=== PATIENT | female | born 1960 | race Caucasian/White ===

== ENCOUNTER 2017-08-19 05:42 | Emergency (ER) | payer BC, OTHER ==
[2017-08-19] MEDS ORDERED: Ondansetron 4 MG/2 ML SDV IVPUSH ONE (06:01)
[2017-08-19] MEDS ORDERED: Ketorolac 30 MG/ML SDV IVPUSH ONE (06:01)
[2017-08-19] MEDS ORDERED: Sodium Chloride 0.9% 1,000 ML IV ONE (06:01)
--- NOTE | 2017-08-19 06:11 | EDM.PDOC ---
<Freddy Villaseñor - Last Filed: 08/19/17 07:02> ED HPI GENERAL MEDICAL PROBLEM - General Chief Complaint: Abdominal Pain Stated Complaint: STOMACH PAINS Time Seen by Provider: 08/19/17 06:11 Source of Information: Reports: Patient - History of Present Illness INITIAL COMMENTS - FREE TEXT/NARRATIVE: HISTORY AND PHYSICAL: History of present illness: [Patient presents with epigastric pain radiating to her back she rates 8 out of 10 and has been present since 7 PM last night, and began after eating taco [employer] No fever vomiting chills sweats at current she has had one episode of vomiting and some mild nausea no chest pain shortness breath headache dizziness or palpitation bowel or urine symptoms last bowel movement yesterday] Previous appendectomy Review of systems: As per history of present illness and below otherwise all systems reviewed and negative. Past medical history: As per history of present illness and as reviewed below otherwise noncontributory. Surgical history: As per history of present illness and as reviewed below otherwise noncontributory. Social history: No reported history of drug or alcohol abuse. Family history: As per history of present illness and as reviewed below otherwise noncontributory. Physical exam: HEENT: Atraumatic, normocephalic, pupils reactive, negative for conjunctival pallor or scleral icterus, mucous membranes moist, throat clear, neck supple, nontender, trachea midline. Lungs: Clear to auscultation, breath sounds equal bilaterally, chest nontender. Heart: S1S2, regular, negative for clicks, rubs, or JVD. Abdomen: Soft, nondistended but protuberant, nonfocal pain on deep palpation no guarding or rebound. Negative for masses or hepatosplenomegaly. Negative for costovertebral tenderness. Pelvis: Stable nontender. Genitourinary: Deferred. Rectal: Deferred. Extremities: Atraumatic, negative for cords or calf pain. Neurovascular unremarkable. Neuro: Awake, alert, oriented. Cranial nerves II through XII unremarkable. Cerebellum unremarkable. Motor and sensory unremarkable throughout. Exam nonfocal. Diagnostics: [CBC CMP troponin lipase ] Therapeutics: [ 1 L normal saline bolus Zofran 8 mg IV Toradol 30 mg IV ] Impression: [ abdominal pain ] Patient signed out to Dr. Rea at 7 AM follow imaging redirect and disposition Definitive disposition and diagnosis as appropriate pending reevaluation and review of above. Treatments LACE FINISHER: Reports: NSAIDS Abdomen Pain Score (Numeric/FACES): 8 - Related Data Allergies Allergy/AdvReac Type Severity Reaction Status Date / Time morphine Allergy Nausea Verified 08/19/17 05:52 Home Meds: Home Meds . 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: Musculoskeletal History: Reports: None Neurological History: Reports: None Psychiatric History: Reports: None Endocrine/Metabolic History: Reports: None Hematologic History: Reports: None Immunologic History: Reports: None Oncologic (Cancer) History: Reports: None Dermatologic History: Reports: None - Infectious Disease History Infectious Disease History: Reports: Chicken Pox - Past Surgical History Head Surgeries/Procedures: Reports: None GI Surgical History: Reports: Appendectomy Female Surgical History: Reports: Hysterectomy Social & Family History - Family History Family Medical History: Noncontributory - Tobacco Use Smoking Status *Q: Never Smoker - Caffeine Use Caffeine Use: Reports: Soda - Recreational Drug Use Recreational Drug Use: No Course - Vital Signs Last Recorded V/S: Last Vital Signs Temp 36.1 C 08/19/17 05:52 Pulse 105 H 08/19/17 05:52 Resp 18 08/19/17 05:52 BP 151/85 H 08/19/17 05:52 Pulse Ox 98 08/19/17 05:52 - Orders/Labs/Meds Orders: Active Orders 24 hr Category Date Time Status Abdomen Pelvis w Cont [CT] Stat Exams 08/19/17 06:34 Taken UA W/MICROSCOPIC [URIN] Stat Lab 08/19/17 06:50 Ordered Labs: Laboratory Tests 08/19/17 08/19/17 08/19/17 Range/Units 06:00 06:00 06:50 WBC 17.15 H (4.0-11.0) K/uL RBC 4.76 (4.30-5.90) M/uL Hgb 14.1 (12.0-16.0) g/dL Hct 43.2 (36.0-46.0) % MCV 90.8 (80.0-98.0) fL MCH 29.6 (27.0-32.0) pg MCHC 32.6 (31.0-37.0) g/dL RDW Std Deviation 43.6 (28.0-62.0) fl RDW Coeff of Jacob 13 (11.0-15.0) % Plt Count 298 (150-400) K/uL MPV 10.40 (7.40-12.00) fL Neut % (Auto) 86.1 H (48.0-80.0) % Lymph % (Auto) 9.5 L (16.0-40.0) % Mower % (Auto) 4.3 (0.0-15.0) % Eos % (Auto) 0.0 (0.0-7.0) % Baso % (Auto) 0.1 (0.0-1.5) % Neut # (Auto) 14.8 H (1.4-5.7) K/uL Lymph # (Auto) 1.6 (0.6-2.4) K/uL Mower # (Auto) 0.7 (0.0-0.8) K/uL Eos # (Auto) 0.0 (0.0-0.7) K/uL Baso # (Auto) 0.0 (0.0-0.1) K/uL Nucleated RBC % 0.0 /100WBC Nucleated RBCs # 0 K/uL Sodium 139 (136-145) mmol/L Potassium 4.0 (3.5-5.1) mmol/L Chloride 101 (98-107) mmol/L Carbon Dioxide 26.4 (21.0-32.0) mmol/L BUN 14 (7.0-18.0) mg/dL Creatinine 0.8 (0.6-1.0) mg/dL Est Cr Clr Drug Dosing 69.81 mL/min Estimated GFR (MDRD) > 60.0 ml/min Glucose 153 H (74-106) mg/dL Calcium 9.5 (8.5-10.1) mg/dL Total Bilirubin 0.2 (0.2-1.0) mg/dL AST 16 (15-37) IU/L ALT 23 (14-63) IU/L Alkaline Phosphatase 147 H (46-116) U/L Troponin I < 0.050 (0.000-0.056) ng/mL Total Protein 7.8 (6.4-8.2) g/dL Albumin 3.9 (3.4-5.0) g/dL Globulin 3.9 H (2.0-3.5) g/dL Albumin/Globulin Ratio 1.0 L (1.3-2.8) Lipase 90 (73-393) U/L Urine Color YELLOW Urine Appearance HAZY Urine pH 8.5 H (5.0-8.0) Ur Specific [place] 1.020 (1.001-1.035) Urine Protein TRACE (NEGATIVE) mg/dL Urine Glucose (UA) NEGATIVE (NEGATIVE) mg/dL Urine Ketones NEGATIVE (NEGATIVE) mg/dL Urine Occult Blood NEGATIVE (NEGATIVE) Urine Nitrite NEGATIVE (NEGATIVE) Urine Bilirubin NEGATIVE (NEGATIVE) Urine Urobilinogen 2.0 H (<2.0) EU/dL Ur Leukocyte Esterase NEGATIVE (NEGATIVE) Urine RBC 0-2 (0-2/HPF) Urine WBC 0-2 (0-5/HPF) Ur Epithelial Cells MODERATE (NONE-FEW) Urine Bacteria FEW (NEGATIVE) Meds: Medications Discontinued Medications Generic Name Dose Route Start Last Admin Trade Name Freq PRN Reason Stop Dose Admin Sodium Chloride 1,000 mls @ 999 mls/hr 08/19/17 06:01 08/19/17 06:09 Normal Saline IV 08/19/17 07:01 999 mls/hr STAT ONE Administration Iopamidol 100 ml 08/19/17 07:07 08/19/17 07:07 Isovue-370 (76%) IVPUSH 08/19/17 07:08 100 ml ONETIME STA Administration Ketorolac Tromethamine 30 mg 08/19/17 06:01 08/19/17 06:10 Toradol IVPUSH 08/19/17 06:02 30 mg ONETIME ONE Administration Ondansetron HCl 8 mg 08/19/17 06:01 08/19/17 06:09 Zofran IVPUSH 08/19/17 06:02 8 mg ONETIME ONE Administration Departure - Departure Disposition: Home, Self-Care 01 Clinical Impression: Abdominal pain Qualifiers: Abdominal location: upper abdomen, unspecified Qualified Code(s): R10.10 - Upper abdominal pain, unspecified Leukocytosis Qualifiers: Leukocytosis type: unspecified Qualified Code(s): D72.829 - Elevated white blood cell count, unspecified - Discharge Information Referrals: PCP,None [Primary Care Provider] - Forms: ED Department Discharge Additional Instructions: The following information is given to patients seen in the emergency department who are being discharged to home. This information is to outline your options for follow-up care. We provide all patients seen in our emergency department with a follow-up referral. The need for follow-up, as well as the timing and circumstances, are variable depending upon the specifics of your emergency department visit. If you don't have a primary care physician on staff, we will provide you with a referral. We always advise you to contact your personal physician following an emergency department visit to inform them of the circumstance of the visit and for follow-up with them and/or the need for any referrals to a consulting specialist. The emergency department will also refer you to a specialist when appropriate. This referral assures that you have the opportunity for followup care with a specialist. All of these measure are taken in an effort to provide you with optimal care, which includes your followup. Under all circumstances we always encourage you to contact your private physician who remains a resource for coordinating your care. When calling for followup care, please make the office aware that this follow-up is from your recent emergency room visit. If for any reason you are refused follow-up, please contact the [facility] emergency department at and ask to speak to the emergency department charge nurse. [facility] Specialty Care-General Surgery Professional [address] [address] Please push hydration and avoid spicy foods and eating a low-fat diet. Please call and follow-up with Dr. Santoyo and her clinic using resources given to above. Please return to ER as needed and as discussed and use the pain medications you have been given as needed. <Estela Stovall - Last Filed: 08/19/17 08:34> ED HPI GENERAL MEDICAL PROBLEM - History of Present Illness INITIAL COMMENTS - FREE TEXT/NARRATIVE: This is Dr. Stovall dictating an addendum note as having assumed care of this case at 7 AM. Agree with history and physical as above and on my evaluation the patient says that the pain is pretty much gone but when she was having it it was diffuse right and left as well as mid abdomen in the upper location not localizing right or left. She has a bowel movement every other day and it is not changed in character color. She did eat tacos last evening but she does eat those in the past and has never had issues. Currently labs have been reviewed which revealed a WBC count of 17,000 and an alkaline phosphatase of 147 but the remainder the labs are normal. She is pain-free currently and we await the CT scan results. 0800: All testing results were discussed with the patient and family at bedside as well as with Dr. Santoyo our on-call surgeon. As the patient is currently pain -free and has no significant findings she feels the patient can go home with expectant management and close observation with strict reasons to return to the ED. She will follow the patient up in her clinic. Patient is comfortable with this care plan. I will give her a few tramadol to use for discomfort but strongly advised her on reasons to return. Impression: Abdominal pain etiology unclear, leukocytosis ED ROS GENERAL - Review of Systems Review Of Systems: ROS reveals no pertinent complaints other than HPI. ED EXAM, GENERAL - Physical Exam Exam: See Below (see dictation) Departure - Departure Time of Disposition: 08:33 Condition: Good
[2017-08-19 06:29] LABS: CHLORIDE,CL 101 mmol/L (98-107); SODIUM,NA 139 mmol/L (136-145)
[2017-08-19] MEDS ORDERED: Iopamidol 755 Mg/ML 100 ML Bottle IVPUSH STA (07:07)
--- NOTE | 2017-08-20 14:22 | CT ---
EXAM DATE: 08/19/17 PATIENT'S AGE: 57 Patient: JUAN MUHAMMAD Facility: [place], [place] Site . Site : 1960 Study: CT Abdomen/Pelvis WITH [id number]/22/2018 7:12:30 AM Ordering Physician: Lee Ann Hayes Final Report: HISTORY: Generalized abdominal pain. COMPARISON: None. TECHNIQUE: Axial images were obtained through the abdomen and pelvis following intravenous contrast. FINDINGS: Mild ground-glass opacities in the and lower lungs likely related to atelectasis. Tiny hypodensity in the right lobe of the liver should be a cyst. The spleen pancreas adrenal glands and kidneys are within normal. The bowel is normal in caliber. No evidence for bowel obstruction. Colonic diverticula. No acute diverticulitis. No lymphadenopathy or ascites. Degenerative changes in the lower lumbar spine. IMPRESSION: No acute abnormality. Please note that all CT scans at this facility use dose modulation, iterative reconstruction, and/or weight-based dosing when appropriate to reduce radiation dose to as low as reasonably achievable. Dictated by Leydi Zaragoza MD @ Aug 19 2017 7:38AM (Electronic Signature) Report Signed by Proxy. [facility]
== END 2017-08-19 08:50 | disposition home or self-care (01) ==
LOC: MW.ED 05:42
DX: R10.13 Epigastric pain (principal); R10.10 Upper abdominal pain, unspecified; D72.829 Elevated white blood cell count, unspecified; Z88.5 Allergy status to narcotic agent; Z90.49 Acquired absence of other specified parts of digestive tract
CPT/HCPCS: 36415; 74177; 80053; 81001; 83690; 84484; 85025; 96361; 96374; 96375; 99284; J1885; J2405; J7040; Q9967

== ENCOUNTER → 2017-09-13 | Day surgery (SDC) | payer BC ==
[~2017-09-13] MED LIST: Bupivacaine 0.5% 30 ML SDV ONE; Glycopyrrolate 0.2 MG/ML SDV ONE; HYDROmorphone 2 MG/ML SDV ONE; Lactated Ringers 1,000 ML IV SCH; Lidocaine 2% 5 ML SDV ONE; Midazolam 1 MG/ML 2 ML SDV ONE; Neostigmine Methylsulfate 1 MG/ML 5 ML Syringe ONE; Propofol 200 MG/20 ML SDV ONE; Sodium Chloride 0.9% 10 ML Syringe FLUSH PRN; Sodium Chloride 0.9% 2.5 ML Syringe FLUSH PRN; Sugammadex Sodium 200 MG/2 ML VIAL ONE; ceFAZolin 2 GM in Premix Bag 1 BAG IV ONE; ePHEDrine 50 MG/ML SDV ONE; fentaNYL 100 MCG/2 ML SDV ONE
--- NOTE | 2017-09-13 10:39 | PCM.PREANE ---
Preanesthetic Assessment - Anesthesia/Transfusion/Family Hx Anesthesia History: Prior Anesthesia Without Reaction Family History of Anesthesia Reaction: No Transfusion History: No Prior Transfusion(s) - Review of Systems General: No Symptoms Pulmonary: No Symptoms Cardiovascular: No Symptoms Gastrointestinal: No Symptoms Neurological: No Symptoms Other: Reports: None - Physical Assessment NPO Status Date: 09/12/17 Height: 1.65 m Weight: 119.295 kg ASA Class: 2 Mental Status: Alert & Oriented x3 Airway Class: Mallampati = 1 Dentition: Reports: Normal Dentition ROM/Head Extension: Full Lungs: Clear to Auscultation, Normal Respiratory Effort Cardiovascular: Regular Rate, Regular Rhythm - Allergies Allergies/Adverse Reactions: Allergies Allergy/AdvReac Type Severity Reaction Status Date / Time morphine Allergy Nausea Verified 09/10/17 13:51 - Acknowledgements Anesthesia Type Planned: General Anesthesia (PMH: MO, htn, gerd) Pt an Appropriate Candidate for the Planned Anesthesia: Yes Alternatives and Risks of Anesthesia Discussed w Pt/Guardian: Yes Pt/Guardian Understands and Agrees with Anesthesia Plan: Yes PreAnesthesia Questionnaire HEENT History: Reports: None Cardiovascular History: Reports: Hypertension Respiratory History: Reports: None Gastrointestinal History: Reports: GERD Genitourinary History: Reports: None 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: Musculoskeletal History: Reports: None Neurological History: Reports: None Psychiatric History: Reports: None Endocrine/Metabolic History: Reports: Obesity/BMI 30+ Hematologic History: Reports: None Immunologic History: Reports: None Oncologic (Cancer) History: Reports: None Dermatologic History: Reports: None - Infectious Disease History Infectious Disease History: Reports: Chicken Pox - Past Surgical History HEENT Surgical History: Reports: Adenoidectomy, Naso-Sinus Surgery, Tonsillectomy GI Surgical History: Reports: Appendectomy Female Surgical History: Reports: Hysterectomy, Salpingo-Oophorectomy - SUBSTANCE USE Smoking Status *Q: Never Smoker Recreational Drug Use History: No - HOME MEDS Home Medications: Home Meds Lisinopril 10 mg PO DAILY 09/10/17 [History] Omeprazole 40 mg PO DAILY 09/10/17 [History] - CURRENT (IN HOUSE) MEDS Current Meds: Current Medications Lactated Ringer's (Ringers, Lactated) 1,000 mls @ 125 mls/hr IV ASDIRECTED [facility] Last Admin: 09/13/17 10:36 Dose: 125 mls/hr Sodium Chloride (Saline Flush) 10 ml FLUSH ASDIRECTED PRN PRN Reason: Keep Vein Open Sodium Chloride (Saline Flush) 2.5 ml FLUSH ASDIRECTED PRN PRN Reason: Keep Vein Open Discontinued Medications Bupivacaine HCl (Marcaine 0.5%) Confirm Administered Dose 30 ml .ROUTE .STK-MED ONE Stop: 09/13/17 07:25 Fentanyl (Sublimaze) Confirm Administered Dose 500 mcg .ROUTE .STK-MED ONE Stop: 09/13/17 10:20 Glycopyrrolate (Robinul) Confirm Administered Dose 0.6 mg .ROUTE .STK-MED ONE Stop: 09/13/17 08:57 Cefazolin Sodium/Dextrose 2 gm (/ Premix) 50 mls @ 100 mls/hr IV ONETIME ONE Stop: 09/12/17 13:31 Lidocaine (Xylocaine-Mpf 2%) Confirm Administered Dose 10 ml .ROUTE .STK-MED ONE Stop: 09/13/17 10:20 Midazolam HCl (Versed 1 Mg/Ml) Confirm Administered Dose 2 mg .ROUTE .STK-MED ONE Stop: 09/13/17 10:21 Neostigmine Methylsulfate (Neostigmine) Confirm Administered Dose 5 mg .ROUTE .STK-MED ONE Stop: 09/13/17 08:57 Propofol (Diprivan 20 Ml) Confirm Administered Dose 400 mg .ROUTE .STK-MED ONE Stop: 09/13/17 10:20
[2017-09-13 12:25] LABS: CHLORIDE,CL 105 mmol/L (98-107); SODIUM,NA 138 mmol/L (136-145)
--- NOTE | 2017-09-13 16:32 | PCM.OPNOTE ---
- General Post-Op/Procedure Note Date of Surgery/Procedure: 09/13/17 Operative Procedure(s): Laparoscopic coverted to open cholecystectomy Findings: Severely inflamed and hemorrhagic gallbladder containing large impacted stones in the infundibulum. Large amount of inflammation around cystic duct and CBD. Pre Op Diagnosis: Symptomatic cholelithiasis Post-Op Diagnosis: Acute, hemorrhagic cholecystits Anesthesia Technique: General ET Tube Primary Surgeon: Jayshree Santoyo Secondary Surgeon: Sinan Moreno Pathology: gallbladder Output, Urine Amount: 200 EBL in mLs: 300 Surgical Drain/Tube Type: Shaheed Drain Complications: Gallbladder tore from the cystic duct Condition: Good Free Text/Narrative:: Intake & Output 09/13/17 09/13/17 09/13/17 06:59 14:59 22:59 Output Total 200 Balance -200
--- NOTE | 2017-09-13 16:57 | PCM.POSTAN ---
POST ANESTHESIA ASSESSMENT - MENTAL STATUS Mental Status: Alert, Oriented - RESPIRATORY Respiratory Status: Respiratory Rate WNL, Airway Patent, O2 Saturation Stable - CARDIOVASCULAR CV Status: Pulse Rate WNL, Blood Pressure Stable - GASTROINTESTINAL GI Status: No Symptoms - PAIN Pain Score: 3 - POST OP HYDRATION Hydration Status: Adequate & Stable - OBSERVATIONS Free Text/Narrative:: Pt is stable and doing well in PACU, Dr Santoyo is having he patient transferred to [facility] for evaluation of suspected common bile duct injury. Pt will be transferred directly from PACU to the care of the flight team.
--- NOTE | 2017-09-13 16:58 | PCM48HPAN ---
Post Anesthesia Note - EVALUATION WITHIN 48HRS OF ANESTHETIC Vital Signs in Normal Range: Yes Patient Participated in Evaluation: Yes Respiratory Function Stable: Yes Airway Patent: Yes Cardiovascular Function Stable: Yes Hydration Status Stable: Yes Pain Control Satisfactory: Yes Nausea and Vomiting Control Satisfactory: Yes Mental Status Recovered: Yes Resp Rate: 16
--- NOTE | 2017-09-14 08:46 | OR ---
SURGEON: ERASTO COWAN MD DATE OF PROCEDURE: 09/13/2017 PREOPERATIVE DIAGNOSIS: Symptomatic cholelithiasis. POSTOPERATIVE DIAGNOSIS: Severe cholecystitis. BRAND MANAGER: Sinan Moreno M.D. FLUIDS: 2500ml crystalloid ESTIMATED BLOOD LOSS: 300 mL. URINE OUTPUT: 200 mL. FINDINGS: Severely inflamed and enlarged gallbladder containing multiple large gallstones. Several of these were impacted at the cystic duct. Patches of necrosis in gallbladder lumen. COMPLICATIONS: Gallbladder tore from cystic duct or common bile duct. INDICATIONS: The patient is a 57-year-old female, who presented on August 19 to the emergency room with right upper quadrant pain. Her white count at that time was 17,000 and alkaline phosphatase was slightly elevated. A CT of the abdomen and pelvis showed cholelithiasis. The patient was sent home. She was then sent to my clinic. I obtained a right upper quadrant ultrasound that showed a mildly thickened gallbladder wall and cholelithiasis with a positive dunn's sign. Her CBD measured 2mm. The patient established a PCP and had blood work performed before surgery. She was found to have an elevated AST, ALT, alkaline phosphatase but a normal bilirubin. On recheck today, her ALT and AST were normal. Her alkaline phosphatase was mildly elevated (but improved) and she was feeling well. The decision was made to remove the gallbladder. We discussed the laparoscopic and open approaches. I explained that should I be unable to complete it safely laparoscopically, we would convert to open. I explained the expected postoperative course as well as the risks including bleeding, infection, or damage to surrounding structures. The patient verbalized understanding and wished to proceed. PROCEDURE IN DETAIL: The patient was brought into the OR and placed on the OR table in supine position. A time-out was completed verifying the patient's name, age, date of , allergies, and procedure to be performed. General endotracheal anesthesia was induced. The left arm was tucked at the patient's side and a Ferro catheter was placed. The abdomen was prepped and draped in usual standard fashion. The supraumbilical midline was anesthetized with 0.5% Marcaine plain. A 3 cm incision was made using an 11 blade. Retractors were used to bluntly dissect down to the level of the fascia. The fascia was elevated with Kelli's and incised sharply with the Collins scissors. Entry into the abdomen was palpated, and a 12 mm Valery trocar was placed in the abdomen. The abdomen was insufflated and a 5 mm 30- degree scope was inserted in the abdomen. I inspected the area underneath my initial trocar placement and no damage to surrounding structures was noted. The patient was placed into reverse Trendelenburg position and airplaned slightly to the left. Three 5 mm trocars were placed under direct visualization in the following locations; one along the right flank, one in the epigastric area, and two fingerbreadths below the right subcostal margin in the midclavicular line. The dome of the gallbladder was grasped with an atraumatic grasper through the flank port and elevated. The gallbladder itself was severely thickened and inflamed. I attempted to use an aspiration needle to aspirate any bile out of the gallbladder; however, no fluid was able to be aspirated. The area of the infundibulum was severely inflamed and thickened, and I was unable to identify any structures. The decision was made to convert to open. A right subcostal incision was made. The incision was carried down through the layers of the abdominal wall until entry into the abdomen was made. Retractors and laps were put in place and my partner, Dr. Sinan Moreno came in to assist me. Even with palpation, was difficult to ascertain where the cystic duct was. We approached the gallbladder in a dome down fashion. Metzenbaum scissors were used to create a plane between the gallbladder and the liver. The gallbladder was entered. Multiple large 2 to 3 cm stones were encountered. These were removed to allow for better manipulation of the gallbladder itself. Several of the stones were tightly impacted down in the infundibulum. We were able to create a plane in the gallbladder fossa and work our way down to the level of the cystic duct. Once we had mobilized the distal 2 /3 of the gallbladder, we were able to massage the impacted stones out of the infundibulum. Using a right angle and Kittner, we were able to take down some of the thickened adhesions around the cystic artery and duct. We placed clips on the vascular structure that appeared to be the cystic artery. We were then able to see a structure that appeared to be the cystic duct. We were meticulously dissecting through the thick adhesions around this structure when the gallbladder and that structure (assumed to be the cystic duct) tore away. Using a DeBakey, I attempted to lift up the remaining tissue and staple across it with a 5mm clip. The staple did not hold and there was bile leaking from this area. A 3-0 Vicryl suture was then used to place a [id number] stitch over this area. After this, the bile quit leaking. We debated doing an intraoperative cholangiogram or injecting dye into the common bile duct; however, we were unable to see the structures adequately due to the thickened and inflamed tissue. The decision was made to place drains and transfer the patient for further workup. A 19-Slovenian Shaheed drain was placed in the gallbladder fossa. A small amount of bleeding was easily controlled with cautery. The drain was brought out at the right flank port site and secured to the skin with silk with 0 silk suture. The abdomen was copiously irrigated with an Ancef and normal saline mixture. The peritoneum was then closed with a running 0 Vicryl suture. Abdominal wall fascia was closed with interrupted 0 Ethibond sutures. The subcutaneous fat was closed with a running 3-0 Vicryl stitch. The skin was then closed with pau. The supraumbilical port site fascia was closed with interrupted 0 Vicryl sutures. The skin was closed with pau. Sterile dressings were applied. The patient was transferred to the PACU in stable condition. I called Dr. Sean Gotti at [facility] in [facility]. He accepted the patient and she will be transferred there for further workup to rule out a bile duct leak or common bile duct injury. DELORES HERMOSILLO /[id number]
== END ==
LOC: MW.SDS 10:14
PROVIDERS: ATTEND Surgery
DX: K80.12 Calculus of gallbladder with acute and chronic cholecystitis without obstruction (principal); K21.9 Gastro-esophageal reflux disease without esophagitis; E66.9 Obesity, unspecified; Z68.41 Body mass index [BMI] 40.0-44.9, adult; Z79.899 Other long term (current) drug therapy; Z90.49 Acquired absence of other specified parts of digestive tract; Z90.89 Acquired absence of other organs; Z88.5 Allergy status to narcotic agent
CPT/HCPCS: 36415; 47562; 80053; J1170; J2250; J3010; J3490; J7120; 88304; J2704

== ENCOUNTER 2019-08-09 09:07 | Emergency (ER) | payer BC ==
[2019-08-09] MEDS: Ondansetron 4 MG/2 ML SDV IVPUSH ONE (09:38)
[2019-08-09] MEDS: Sodium Chloride 0.9% 1,000 ML IV ONE (09:38)
[2019-08-09] MEDS: Ketorolac 30 MG/ML SDV IVPUSH ONE (09:38)
--- NOTE | 2019-08-09 10:00 | EDM.PDOC ---
ED [facility] GENERAL MEDICAL PROBLEM - General Chief Complaint: Abdominal Pain Stated Complaint: ABD PAIN Time Seen by Provider: 08/09/19 09:58 Source of Information: Reports: Patient, Old Records History Limitations: Reports: No Limitations - History of Present Illness INITIAL COMMENTS - FREE TEXT/NARRATIVE: Patient is a 59-year-old female with a history of cholecystitis status post cholecystectomy about 2 years ago presenting with a chief complaint of right upper quadrant abdominal pain. Patient states that the pain started yesterday and is fluctuated in intensity since then. Nothing made it seems to make the pain better or worse. Patient has associated nausea and vomiting. Last bowel movement was yesterday and was normal. Patient denies fevers. Patient took Tylenol with minimal relief. Pain radiates to the epigastrium. Patient denies any fevers, chills, chest pain, shortness of breath, cough. Pmhx: Obesity Pshx: Cholecystectomy, appendectomy, hysterectomy Family Hx: noncontributory Smoking history? no Etoh use? none Drug use? none In addition to that documented in the HPI above, the additional ROS was obtained : Constitutional: Denies fevers or chills Eyes: Denies vision changes ENMT: Denies sore throat CV: Denies chest pain Resp: Denies SOB GI: Per HPI : Denies painful urination MSK: Denies recent trauma Skin: Denies new rashes Neuro: Denies new numbness or tingling or weakness Endocrine: Denies unexpected weight loss Heme: Denies bleeding disorders I have reviewed the triage vital signs Const: Well nourished, well developed, appears stated age Eyes: PERRL, no conjunctival injection HENT: NCAT, Neck supple without meningismus CV: RRR, Warm, well-perfused extremities RESP: CTAB, Unlabored respiratory effort GI: soft, non-tender, non-distended, no masses. No guarding or rebound MSK: No gross deformities appreciated Skin: Warm, dry. 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 Sensation and motor function of extremities grossly intact. Psych: Appropriate mood and affect Assessment and plan: Patient 59-year-old female presenting with abdominal pain. Patient had a benign abdominal exam on initial presentation. Patient's labs are within normal limits. To rule out small bowel obstruction, a CT scan was ordered which did not demonstrate any bowel obstruction. There was evidence of possible mild inflammation around the pancreas for concerns about pancreatitis. However, the patient had a normal lipase which is this point of the disease illness it is unlikely to be pancreatitis. Patient does not have any history of pancreatitis that would make this a concern for acute on chronic pancreatitis. Patient's vomiting resolved after Zofran and she is tolerating p.o. Differential diagnosis considered small bowel obstruction, pancreatitis, hepatitis, gastritis. Given lack of significant laboratory findings and CT scan being negative, it is likely this is related to gastric-itis versus peptic ulcer disease. Patient given education regarding diet and given return precautions. All questions addressed and answered. Patient agrees with plan. 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: Musculoskeletal History: Reports: None Neurological History: Reports: None Psychiatric History: Reports: None Endocrine/Metabolic History: Reports: Obesity/BMI 30+ Hematologic History: Reports: None Immunologic History: Reports: None Oncologic (Cancer) History: Reports: None Dermatologic History: Reports: None - Infectious Disease History Infectious Disease History: Reports: None - Past Surgical History Head Surgeries/Procedures: Reports: None HEENT Surgical History: Reports: Adenoidectomy, Naso-Sinus Surgery, Tonsillectomy Cardiovascular Surgical History: Reports: None Respiratory Surgical History: Reports: None GI Surgical History: Reports: Appendectomy, Cholecystectomy Female Surgical History: Reports: Hysterectomy, Salpingo-Oophorectomy Endocrine Surgical History: Reports: None Neurological Surgical History: Reports: None Musculoskeletal Surgical History: Reports: None Oncologic Surgical History: Reports: None Dermatological Surgical History: Reports: None Social & Family History - Family History Family Medical History: Noncontributory - Tobacco Use Smoking Status *Q: Never Smoker Second Hand Smoke Exposure: No - Caffeine Use Caffeine Use: Reports: Soda - Recreational Drug Use Recreational Drug Use: No ED ROS GENERAL - Review of Systems Review Of Systems: See Below ED EXAM, GI/ABD - Physical Exam Exam: See Below Course - Vital Signs Last Recorded V/S: Last Vital Signs Temp 36.7 C 08/09/19 10:15 Pulse 96 08/09/19 11:19 Resp 20 08/09/19 11:02 BP 149/91 H 08/09/19 11:19 Pulse Ox 95 08/09/19 11:19 - Orders/Labs/Meds Orders: Active Orders 24 hr Category Date Time Status Abdomen Pelvis w Cont [CT] Stat Exams 08/09/19 10:13 Taken Labs: Laboratory Tests 08/09/19 08/09/19 08/09/19 Range/Units 09:35 09:35 09:35 WBC 9.63 (4.0-11.0) K/uL RBC 5.40 (4.30-5.90) M/uL Hgb 15.8 (12.0-16.0) g/dL Hct 49.4 H (36.0-46.0) % MCV 91.5 (80.0-98.0) fL MCH 29.3 (27.0-32.0) pg MCHC 32.0 (31.0-37.0) g/dL RDW Std Deviation 46.0 (28.0-62.0) fl RDW Coeff of Jacob 14 (11.0-15.0) % Plt Count 288 (150-400) K/uL MPV 10.70 (7.40-12.00) fL Neut % (Auto) 73.0 (48.0-80.0) % Lymph % (Auto) 18.9 (16.0-40.0) % [place] % (Auto) 7.8 (0.0-15.0) % Eos % (Auto) 0.1 (0.0-7.0) % Baso % (Auto) 0.2 (0.0-1.5) % Neut # (Auto) 7.0 H (1.4-5.7) K/uL Lymph # (Auto) 1.8 (0.6-2.4) K/uL [place] # (Auto) 0.8 (0.0-0.8) K/uL Eos # (Auto) 0.0 (0.0-0.7) K/uL Baso # (Auto) 0.0 (0.0-0.1) K/uL Nucleated RBC % 0.0 /100WBC Nucleated RBCs # 0 K/uL Lactate 1.0 (0.20-2.00) mmol/L Sodium 140 (136-145) mmol/L Potassium 4.1 (3.5-5.1) mmol/L Chloride 101 (98-107) mmol/L Carbon Dioxide 27.9 (21.0-32.0) mmol/L BUN 12 (7.0-18.0) mg/dL Creatinine 0.8 (0.6-1.0) mg/dL Est Cr Clr Drug Dosing 68.13 mL/min Estimated GFR (MDRD) > 60.0 ml/min Glucose 137 H (74-106) mg/dL Calcium 9.8 (8.5-10.1) mg/dL Total Bilirubin 0.4 (0.2-1.0) mg/dL AST 16 (15-37) IU/L ALT 29 (14-63) IU/L Alkaline Phosphatase 133 H (46-116) U/L Total Protein 7.9 (6.4-8.2) g/dL Albumin 4.1 (3.4-5.0) g/dL Globulin 3.8 (2.6-4.0) g/dL Albumin/Globulin Ratio 1.1 (0.9-1.6) Lipase 90 (73-393) U/L Meds: Medications Discontinued Medications Generic Name Dose Route Start Last Admin Trade Name Freq PRN Reason Stop Dose Admin Acetaminophen 650 mg 08/09/19 11:13 08/09/19 11:17 Tylenol PO 08/09/19 11:14 650 mg NOW ONE Administration Sodium Chloride 1,000 mls @ 1,000 mls/hr 08/09/19 09:33 08/09/19 09:38 Normal Saline IV 08/09/19 10:32 1,000 mls/hr .Bolus ONE Administration Ketorolac Tromethamine 15 mg 08/09/19 09:33 08/09/19 09:38 Toradol IVPUSH 08/09/19 09:34 15 mg ONETIME ONE Administration Ondansetron HCl 4 mg 08/09/19 09:33 08/09/19 09:38 Zofran IVPUSH 08/09/19 09:34 4 mg ONETIME ONE Administration Departure - Departure Time of Disposition: 11:58 Disposition: Home, Self-Care 01 Clinical Impression: Gastritis - Discharge Information Prescriptions: Alum Hydrox/Mag Hydrox/Simeth [Maalox Advanced] 1 ml PO TID #355 ml Instructions: Abdominal Pain, Adult, [id number] Referrals: Delia PETTY [Primary Care Provider] - Forms: ED Department Discharge Additional Instructions: The following information is given to patients seen in the emergency department who are being discharged to home. This information is to outline your options for follow-up care. We provide all patients seen in our emergency department with a follow-up referral. The need for follow-up, as well as the timing and circumstances, are variable depending upon the specifics of your emergency department visit. If you don't have a primary care physician on staff, we will provide you with a referral. We always advise you to contact your personal physician following an emergency department visit to inform them of the circumstance of the visit and for follow-up with them and/or the need for any referrals to a consulting specialist. The emergency department will also refer you to a specialist when appropriate. This referral assures that you have the opportunity for follow-up care with a specialist. All of these measure are taken in an effort to provide you with optimal care, which includes your follow-up. Under all circumstances we always encourage you to contact your private physician who remains a resource for coordinating your care. When calling for follow-up care, please make the office aware that this follow-up is from your recent emergency room visit. If for any reason you are refused follow-up, please contact the [facility] Emergency Department at and asked to speak to the emergency department charge nurse. Sepsis Event Note - Evaluation Sepsis Screening Result: No Definite Risk - Focused Exam Vital Signs: Vital Signs Temp Pulse Resp BP Pulse Ox 08/09/19 11:19 96 149/91 H 95 08/09/19 11:02 92 20 153/86 H 93 L 08/09/19 10:15 36.7 C 93 19 153/94 H 91 L 08/09/19 09:11 35.8 C L 127 H 18 168/77 H 95 Date Exam was Performed: 08/09/19 Time Exam was Performed: 11:55 - My Orders Last 24 Hours: My Active Orders 08/09/19 10:13 Abdomen Pelvis w Cont [CT] Stat - Assessment/Plan Last 24 Hours: My Active Orders 08/09/19 10:13 Abdomen Pelvis w Cont [CT] Stat
[2019-08-09 10:07] LABS: BLOOD UREA NITROGEN,BUN 12 mg/dL (7.0-18.0); CARBON DIOXIDE,CO2 27.9 mmol/L (21.0-32.0); CHLORIDE,CL 101 mmol/L (98-107); GLUCOSE RANDOM 137 mg/dL (74-106); LIPASE 90 U/L (73-393); POTASSIUM,K 4.1 mmol/L (3.5-5.1); SODIUM,NA 140 mmol/L (136-145)
[2019-08-09] MEDS: Acetaminophen 325 MG Tab PO ONE (11:17)
--- NOTE | 2019-08-09 11:58 | CT ---
EXAM DATE: 08/09/19 PATIENT'S AGE: 59 Patient: JUAN MUHAMMAD Facility: [facility] . Site : 1960 Study: CT-Abdomen/Pelvis -08/09/2019 10:50:48 AM Ordering Physician: Prakash Guzman Final Report: Indication: Right upper quadrant pain Technique: CT from the lung bases to the pubic symphysis obtained after the uneventful administration of intravenous contrast. Contrast: 100 cc contrast IV. Please note that all CT scans at this facility use dose modulation, iterative reconstruction, and/or weight-based dosing when appropriate to reduce radiation dose to as low as reasonably achievable. Comparison: CT abdomen and pelvis 02/17/2019. Findings: Hepatobiliary: There is a 9 millimeter simple cyst in the right lobe of the liver. Remaining portion of the liver demonstrate normal enhancement. There are postoperative changes from a cholecystectomy. Spleen: Spleen is normal. Pancreas: There is mild fat stranding adjacent to the head of the pancreas. There is mild fatty infiltration of the pancreas. Adrenal glands: Right and left adrenal glands are normal in size. Kidneys: Right and left kidneys are normal. There is no hydronephrosis, calculus , or suspicious mass. Pelvis: The urinary bladder is normal. There are postop changes from hysterectomy. GI: The colon, small bowel, and stomach are normal in appearance. Vessels/lymph nodes: The hepatic veins are patent. The main portal vein, and the right and left portal veins are patent. The abdominal aorta and the major branching vessels are normal. There is no intraperitoneal or retroperitoneal adenopathy. Soft tissues: Subcutaneous soft tissues are normal. There is no evidence of abdominal hernia. Bones: Normal Lung bases: Clear. Impression: 1. Mild fat stranding adjacent to the head of the pancreas. This can represent early pancreatitis. Recommend correlation with amylase and lipase lab values. 2. Postoperative changes from prior cholecystectomy and hysterectomy. Please note that all CT scans at this facility use dose modulation, iterative reconstruction, and/or weight-based dosing when appropriate to reduce radiation dose to as low as reasonably achievable. Dictated by Anuj Martinez MD @ Aug 09 2019 11:03AM Signed by: Anuj Martinez MD @08/09/2019 11:11:50 AM (Electronic Signature) Report Signed by Proxy. TISHAD
[2019-08-10] MEDS: Iopamidol 755 Mg/ML 100 ML Bottle IVPUSH STA (08:54)
== END 2019-08-09 12:11 | disposition home or self-care (01) ==
LOC: MW.ED 09:07
DX: K29.70 Gastritis, unspecified, without bleeding (principal); I10 Essential (primary) hypertension; Z79.899 Other long term (current) drug therapy; E66.9 Obesity, unspecified; Z68.41 Body mass index [BMI] 40.0-44.9, adult; Z88.5 Allergy status to narcotic agent
CPT/HCPCS: 36415; 74177; 80053; 83605; 83690; 85025; 96361; 96374; 96375; 99284; A9270; J1885; J2405; J7030; Q9967; 99283

== ENCOUNTER 2024-09-27 23:44 | Inpatient (IN) | payer BC ==
[2024-09-28] MEDS: Sodium Chloride 0.9% 1,000 ML IV ONE (00:35)
[2024-09-28] MEDS: Ondansetron 4 MG/2 ML SDV IVPUSH ONE ×2 (00:35→05:14)
[2024-09-28] MEDS: fentaNYL 50 MCG/ML SDV IVPUSH ONE ×2 (00:53→05:14)
[2024-09-28 00:58] LABS: BASOPHILS ABSOLUTE AUTO 0.03 K/uL (0.00-0.20); BASOPHILS PERCENT AUTO 0.2 % (0.0-1.0); EOSINOPHILS ABSOLUTE AUTO 0.01 K/uL (0.00-0.45); EOSINOPHILS PERCENT AUTO 0.1 % (0.0-6.0); HEMATOCRIT 47.8 % (37.0-47.0); HEMOGLOBIN 16.2 g/dL (12.0-16.0); IMMATURE GRAN ABSOLUTE AUTO 0.04 K/uL (0.00-0.05); IMMATURE GRAN PERCENT AUTO 0.3 % (0.0-0.4); LYMPHOCYTES ABSOLUTE AUTO 1.44 K/uL (1.00-4.80); LYMPHOCYTES PERCENT AUTO 9.3 % (24.0-44.0); MEAN CORPUSCULAR HEMOGLOBIN 30.5 pg (28.0-32.0); MEAN CORPUSCULAR HGB CONC 33.9 g/dL (32.0-36.0); MEAN CORPUSCULAR VOLUME 89.8 fL (83.0-99.0); MEAN PLATELET VOLUME 10.3 fL (9.4-12.3); MONOCYTES ABSOLUTE AUTO 0.46 K/uL (0.00-0.80); NEUTROPHILS ABSOLUTE AUTO 13.51 K/uL (1.80-7.70); NEUTROPHILS PERCENT AUTO 87.1 % (41.0-71.0); PLATELET COUNT,PLT 275 K/uL (150-400); RED BLOOD CELL COUNT 5.32 M/uL (4.10-5.30); WHITE BLOOD CELL COUNT,WBC 15.49 K/uL (3.9-11.3)
[2024-09-28 01:22] LABS: A/G RATIO 1.2 (0.9-1.6); ALANINE AMINOTRANSFERASE,ALT 20 IU/L (14-63); ALBUMIN 4.1 g/dL (3.4-5.0); ALKALINE PHOSPHATASE 107 U/L (46-116); ASPARTATE AMNIOTRANSFERASE,AST 19 IU/L (15-37); BILIRUBIN TOTAL 0.6 mg/dL (0.2-1.0); BLOOD UREA NITROGEN,BUN 13 mg/dL (7.0-18.0); CALCIUM 10.1 mg/dL (8.5-10.1); CARBON DIOXIDE,CO2 24.2 mmol/L (21.0-32.0); CHLORIDE,CL 99 mmol/L (98-107); CREATININE 0.8 mg/dL (0.6-1.0); EST CRCL DRUG DOSING (CG) 63.93 mL/min; GLUCOSE RANDOM 156 mg/dL (74-106); POTASSIUM,K 3.8 mmol/L (3.5-5.1); PRO B-TYPE NATRIUR PEPT,BNPPRO 111 pg/mL (0-125); PROTEIN TOTAL,TP 7.4 g/dL (6.4-8.2); SODIUM,NA 137 mmol/L (136-145)
[2024-09-28 01:25] LABS: ESTIMATED GFR 82 mL/min (>60)
[2024-09-28] MEDS: Iopamidol 755 MG/ML 500 ML Multipack Bottle IVPUSH ONE (01:40)
[2024-09-28] MEDS: Pantoprazole 40 MG in Sodium Chloride 0.9% 10 ML IVPUSH ONE (03:36)
[2024-09-28] MEDS ORDERED: Albuterol/Ipratropium 3.0-0.5 MG/3 ML Neb Soln NEB PRN (08:20)
[2024-09-28] MEDS ORDERED: Acetaminophen 650 MG Supp RECTAL PRN (08:20)
[2024-09-28] MEDS ORDERED: Acetaminophen 325 MG Tab PO PRN (08:20)
[2024-09-28] MEDS: Sodium Chloride 0.9% 1,000 ML IV SCH (09:28)
[2024-09-28] MEDS ORDERED: Naloxone 0.4 MG/ML SDV IVPUSH PRN (11:20)
[2024-09-28 11:32] LABS: BASOPHILS ABSOLUTE AUTO 0.03 K/uL (0.00-0.20); BASOPHILS PERCENT AUTO 0.2 % (0.0-1.0); EOSINOPHILS ABSOLUTE AUTO 0.01 K/uL (0.00-0.45); EOSINOPHILS PERCENT AUTO 0.1 % (0.0-6.0); HEMOGLOBIN 16.1 g/dL (12.0-16.0); IMMATURE GRAN ABSOLUTE AUTO 0.05 K/uL (0.00-0.05); IMMATURE GRAN PERCENT AUTO 0.3 % (0.0-0.4); LYMPHOCYTES ABSOLUTE AUTO 1.48 K/uL (1.00-4.80); MEAN CORPUSCULAR HEMOGLOBIN 30.1 pg (28.0-32.0); MEAN CORPUSCULAR HGB CONC 32.9 g/dL (32.0-36.0); MEAN CORPUSCULAR VOLUME 91.6 fL (83.0-99.0); MEAN PLATELET VOLUME 10.3 fL (9.4-12.3); MONOCYTES ABSOLUTE AUTO 0.69 K/uL (0.00-0.80); MONOCYTES PERCENT AUTO 4.2 % (0.0-8.0); NEUTROPHILS ABSOLUTE AUTO 14.27 K/uL (1.80-7.70); NEUTROPHILS PERCENT AUTO 86.2 % (41.0-71.0); PLATELET COUNT,PLT 278 K/uL (150-400); RED BLOOD CELL COUNT 5.35 M/uL (4.10-5.30); WHITE BLOOD CELL COUNT,WBC 16.53 K/uL (3.9-11.3)
[2024-09-28] MEDS: Piperacillin/Tazobactam 4.5 GM in Sodium Chloride 0.9% 100 ML IV ONE (13:13)
[2024-09-28] MEDS: Ondansetron 4 MG/2 ML SDV IVPUSH PRN (13:20)
[2024-09-28] MEDS: HYDROmorphone 0.5 MG/0.5 ML Syringe IVPUSH PRN (13:21)
[2024-09-28] MEDS: Piperacillin/Tazobactam 4.5 GM in Sodium Chloride 0.9% 100 ML IV SCH (16:02)
[2024-09-28 16:41] LABS: BILIRUBIN,URINE NEGATIVE (NEGATIVE); COLOR,URINE YELLOW; GLUCOSE,URINE NEGATIVE (NEGATIVE); KETONES,URINE >=80 mg/dL (NEGATIVE); LEUKOCYTE ESTERASE,URINE NEGATIVE (NEGATIVE); NITRITE,URINE NEGATIVE (NEGATIVE); OCCULT BLOOD,URINE NEGATIVE (NEGATIVE); PH,URINE 5.5 (5.0-8.0); PROTEIN,URINE TRACE mg/dL (NEGATIVE)
[2024-09-28 17:11] LABS: APPEARANCE,URINE HAZY; BACTERIA,URINE FEW (NEGATIVE); EPITHELIAL CELLS,URINE FEW (NONE-FEW); RBC,URINE 0-1 (0-2/HPF)
[2024-09-28] MEDS: Pantoprazole 40 MG in Sodium Chloride 0.9% 10 ML IVPUSH SCH (20:13)
[2024-09-28] MEDS ORDERED: Melatonin 3 MG Tab PO PRN (21:00)
[2024-09-29] MEDS ORDERED: fentaNYL 50 MCG/ML SDV IVPUSH SCH (04:00)
[2024-09-29 05:51] LABS: BASOPHILS ABSOLUTE AUTO 0.02 K/uL (0.00-0.20); BASOPHILS PERCENT AUTO 0.2 % (0.0-1.0); EOSINOPHILS ABSOLUTE AUTO 0.02 K/uL (0.00-0.45); EOSINOPHILS PERCENT AUTO 0.2 % (0.0-6.0); HEMATOCRIT 44.9 % (37.0-47.0); HEMOGLOBIN 14.1 g/dL (12.0-16.0); IMMATURE GRAN ABSOLUTE AUTO 0.05 K/uL (0.00-0.05); IMMATURE GRAN PERCENT AUTO 0.4 % (0.0-0.4); LYMPHOCYTES ABSOLUTE AUTO 2.17 K/uL (1.00-4.80); LYMPHOCYTES PERCENT AUTO 17.6 % (24.0-44.0); MEAN CORPUSCULAR HEMOGLOBIN 29.2 pg (28.0-32.0); MEAN CORPUSCULAR HGB CONC 31.4 g/dL (32.0-36.0); MEAN PLATELET VOLUME 10.2 fL (9.4-12.3); MONOCYTES ABSOLUTE AUTO 0.92 K/uL (0.00-0.80); MONOCYTES PERCENT AUTO 7.5 % (0.0-8.0); NEUTROPHILS ABSOLUTE AUTO 9.16 K/uL (1.80-7.70); NEUTROPHILS PERCENT AUTO 74.1 % (41.0-71.0); PLATELET COUNT,PLT 246 K/uL (150-400); RED BLOOD CELL COUNT 4.83 M/uL (4.10-5.30); WHITE BLOOD CELL COUNT,WBC 12.34 K/uL (3.9-11.3)
[2024-09-29 06:14] LABS: CALCIUM 9.1 mg/dL (8.5-10.1); CARBON DIOXIDE,CO2 30.6 mmol/L (21.0-32.0); CREATININE 0.9 mg/dL (0.6-1.0); EST CRCL DRUG DOSING (CG) 56.82 mL/min; MAGNESIUM 1.8 mg/dL (1.8-2.4); PHOSPHORUS 2.9 mg/dL (2.6-4.7); POTASSIUM,K 4.9 mmol/L (3.5-5.1)
[2024-09-29] MEDS: Dextrose 5%-0.45% NaCl 1,000 ML IV SCH (12:14)
[2024-09-29] MEDS: Metoclopramide 10 MG/2 ML SDV IVPUSH PRN (17:59)
[2024-09-29] MEDS: fentaNYL 50 MCG/ML SDV IVPUSH PRN (17:59)
[2024-09-29] MEDS: Ondansetron 4 MG/2 ML SDV IVPUSH ONE (20:45)
[2024-09-30 05:42] LABS: BASOPHILS ABSOLUTE AUTO 0.02 K/uL (0.00-0.20); BASOPHILS PERCENT AUTO 0.1 % (0.0-1.0); EOSINOPHILS ABSOLUTE AUTO 0.02 K/uL (0.00-0.45); EOSINOPHILS PERCENT AUTO 0.1 % (0.0-6.0); HEMATOCRIT 45.5 % (37.0-47.0); HEMOGLOBIN 15.1 g/dL (12.0-16.0); IMMATURE GRAN ABSOLUTE AUTO 0.05 K/uL (0.00-0.05); IMMATURE GRAN PERCENT AUTO 0.4 % (0.0-0.4); LYMPHOCYTES ABSOLUTE AUTO 2.89 K/uL (1.00-4.80); MEAN CORPUSCULAR HEMOGLOBIN 30.3 pg (28.0-32.0); MEAN CORPUSCULAR HGB CONC 33.2 g/dL (32.0-36.0); MEAN CORPUSCULAR VOLUME 91.2 fL (83.0-99.0); MEAN PLATELET VOLUME 10.4 fL (9.4-12.3); MONOCYTES ABSOLUTE AUTO 0.85 K/uL (0.00-0.80); MONOCYTES PERCENT AUTO 6.2 % (0.0-8.0); NEUTROPHILS ABSOLUTE AUTO 9.94 K/uL (1.80-7.70); NEUTROPHILS PERCENT AUTO 72.2 % (41.0-71.0); PLATELET COUNT,PLT 273 K/uL (150-400); RED BLOOD CELL COUNT 4.99 M/uL (4.10-5.30); WHITE BLOOD CELL COUNT,WBC 13.77 K/uL (3.9-11.3)
[2024-09-30 06:10] LABS: CALCIUM 9.8 mg/dL (8.5-10.1); CARBON DIOXIDE,CO2 33.3 mmol/L (21.0-32.0); CREATININE 0.8 mg/dL (0.6-1.0); EST CRCL DRUG DOSING (CG) 63.93 mL/min; PHOSPHORUS 2.4 mg/dL (2.6-4.7); POTASSIUM,K 4.6 mmol/L (3.5-5.1)
[2024-09-30] MEDS: Pantoprazole 40 MG in Sodium Chloride 0.9% 10 ML IVPUSH SCH (06:33)
[2024-09-30] MEDS: Ondansetron 4 MG/2 ML SDV IVPUSH PRN (10:49)
[2024-09-30] MEDS: Benzocaine 20% Topical Spray UD MUCMEM ONE (11:34)
== END 2024-09-30 11:30 | DRG 247 ==
LOC: MW.ED 23:44 → MW.MS 09-28 05:15
PROVIDERS: ADMIT Family Medicine; ATTEND Family Medicine
PROC: 0D9670Z Drainage of Stomach with Drainage Device, Via Natural or Artificial Opening (ICD-10-PCS; principal; 2024-09-30)
DX: K56.600 Partial intestinal obstruction, unspecified as to cause (principal); I10 Essential (primary) hypertension; K21.9 Gastro-esophageal reflux disease without esophagitis; E66.9 Obesity, unspecified; R00.0 Tachycardia, unspecified; Z90.89 Acquired absence of other organs; Z90.49 Acquired absence of other specified parts of digestive tract; Z98.890 Other specified postprocedural states; Z90.710 Acquired absence of both cervix and uterus; Z90.722 Acquired absence of ovaries, bilateral; Z88.5 Allergy status to narcotic agent; Z79.899 Other long term (current) drug therapy; Z98.84 Bariatric surgery status; Z68.35 Body mass index [BMI] 35.0-35.9, adult
CPT/HCPCS: 36415; 43752; 71045; 71045-26; 74018; 74018-26; 74019; 74019-26; 74177; 74177-26; 74250; 74250-26; 80048; 80053; 81001; 82947; 83735; 83880; 84100; 84484; 85025; 93005; 93010; 96361; 96374; 96375; 96376; 99285; 99285-25; A9270-GY; J2405; J2470; J2543; J2765; J3010; J7030; Q9967